=== PATIENT | male | born 1995 | race Caucasian/White ===

== ENCOUNTER 2021-04-24 12:42 | Emergency (ER) | payer SELFPAY ==
[2021-04-24 12:53] VITALS: BP 137/95; PULSE 96; RESP 16; TEMP 37.2; O2SAT 100
--- NOTE | 2021-04-24 13:10 | ED.SKABFB ---
HPI - Skin/Abscess/Foreign Bdy General Chief complaint: Skin/Abscess/Foreign Body Stated complaint: rash History of Present Illness HPI narrative: Patient started to have a rash three days. According to patient he has a lot of allergies to food and etc but does not recognize anything that he could have eaten that would have caused him this rash. According to patient he has been taking Benadryl and his rash has not gotten any better. Patient rash has went from his right arm and abdomen and woke up this morning and his face has erythema with no drainage noted but his face feels tight patient denies no shortness of breath, no tongue swelling and or throat swelling. Patient does not have any itching noted on his face. Related Data Allergies Allergy/AdvReac Type Severity Reaction Status Date / Time No Known Allergies Allergy Verified 04/24/21 12:57 Review of Systems Review of Systems: Narrative: CONSTITUTIONAL: Denies fever, chills, or sweats. EYES: Denies visual changes, redness, or discharge. ENT: Denies rhinorrhea, congestion, sore throat, or otalgia. CARDIOVASCULAR:Denies chest pain, palpitations, or edema. RESPIRATORY: Denies cough or dyspnea. GASTROINTESTINAL: Denies abdominal pain, nausea, vomiting, or diarrhea. GENITOURINARY: Denies dysuria or hematuria. SKIN:bilateral legs and chest rash or itching. MUSCULOSKELETAL:Denies back pain, joint pain, or myalgia. NEUROLOGIC: Denies headache, numbness, or weakness. PSYCHIATRIC:Denies anxiety or depression PMFSH Comments At time as signature, I have reviewed and agree with nursing past medical, social, surgical and family history. Please see nursing chart for further information. There is no relevant family history pertinent to the presenting complaint. Exam Narrative: Exam Narrative: GENERAL:Well-appearing, well-nourished, and in no acute distress. HEAD:Normocephalic, atraumatic. EYES: PERRLA and EOMI. ENT: Nares clear, no rhinorrhea or epistaxis. Mucous membranes moist. NECK: Supple. CHEST: Clear to auscultation. No respiratory distress. HEART: Regular rate and rhythm. No murmur heard. Normal peripheral pulses. ABDOMEN: Soft, nontender, nondistended, normal active bowel sounds. EXTREMITIES: Normal range of motion. No edema. SKIN: Warm, dry, erythema with facial rash erythema fine rash, bilateral legs, arms, and abdomen with urticaria noted on arms and legs NEURO: No focal deficits. Alert and oriented x3. Course Vital Signs Vital signs: Vital Signs Temperature 99 F 04/24/21 12:53 Pulse Rate 96 04/24/21 12:53 Respiratory Rate 16 04/24/21 12:53 Blood Pressure 137/95 H 04/24/21 12:53 Pulse Oximetry 100 04/24/21 12:53 Temperature 99 F 04/24/21 12:53 Pulse Rate 96 04/24/21 12:53 Respiratory Rate 16 04/24/21 12:53 Blood Pressure 137/95 H 04/24/21 12:53 Pulse Oximetry 100 04/24/21 12:53 MDM - Skin/Abscess/Foreign Bdy Differential Diagnosis Differential diagnosis: Likely abscess of skin or subcutaneous tissue, urticaria, herpes zoster, allergic reaction to drug, cellulitis, eczema, impetigo and contact dermatitis Discharge Plan Discharge Clinical Impression: Urticaria Contact dermatitis Qualifiers: Contact dermatitis type: allergic Contact dermatitis trigger: unspecified trigger Qualified Code(s): L23.9 - Allergic contact dermatitis, unspecified cause Patient Disposition: Home, Self-Care Condition: Stable Instructions: Antibiotic Form, Anaphylaxis (ED), Allergies (ED), General Allergic Reaction (ED) Additional Instructions: Use skin creams/lotion, such as those containing calamine or pramoxine to reduce itchiness Avoid scratching when possible to prevent worsening of the condition and disruption of the skin that could lead to bacterial infection To relieve itching, place a cool washcloth or some ice over the area that itches, rather than scratching Return to the office or seek ER visit if condition is not improving or wor
== END 2021-04-24 13:50 | disposition home or self-care (01) ==
PROVIDERS: Emergency Provider Nurse Practitioner Family
DX: L50.9 Urticaria, unspecified (principal); L23.9 Allergic contact dermatitis, unspecified cause
CPT/HCPCS: 96372; 99213; G0463; J1100